=== PATIENT | female | born 2005 | race Caucasian/White ===

== ENCOUNTER 2023-12-16 19:52 | Emergency (ER) | payer BC ==
[~2023-12-16] VITALS: Ht 172.7 cm; Wt 80.0 kg
[2023-12-16 19:57] VITALS: TEMP 97.7
[2023-12-16] MEDS ORDERED: Ondansetron 4 MG/2 ML VIAL IM ONE (20:15)
[2023-12-16] MEDS ORDERED: Famotidine 20 MG TAB PO ONE (20:15)
[2023-12-16] MEDS ORDERED: Ondansetron 4 MG/2 ML VIAL IV ONE (20:15)
[2023-12-16] MEDS ORDERED: NS 1,000 ML IV ONE (20:15)
[2023-12-16 21:29] VITALS: BP 129/83; PULSE 82
== END 2023-12-16 21:29 | disposition home or self-care (01) ==
LOC: COL.ER 19:52
DX: T78.1XXA Other adverse food reactions, not elsewhere classified, initial encounter (principal); F17.210 Nicotine dependence, cigarettes, uncomplicated; Z91.010 Allergy to peanuts; Z91.013 Allergy to seafood
CPT/HCPCS: J2405; J7030